=== PATIENT | female | born 1995 | race Two or more races ===

== ENCOUNTER 2019-07-02 19:33 | Emergency (ER) | payer SELFPAY ==
[~2019-07-02] VITALS: Ht 162.6 cm; Wt 68.0 kg
--- NOTE | 2019-07-02 19:39 | NUR ---
ED Nurse Note: pt presents to ED via EMS arrival RA 70 c/o tachycardia after eating a marijuana edible. per EMS, pt and her boyfriend were at [employer] and both ate an entire brownie, unk dose, this is both of their first times. pt and her boyfriend are concerned about palpitations and a "racing heart" at this time. she appears to be very anxious, tearful
--- NOTE | 2019-07-02 19:54 | NUR ---
ED Nurse Note: ASL gravedigger used: ID # [id number]
[2019-07-02] MEDS ORDERED: LORazepam Inj 2mg/ml 1ml IM ONE (20:00)
[2019-07-02 20:08] VITALS: BP 149/124
--- NOTE | 2019-07-02 20:45 | Emergency Room Report ---
History of Present Illness General Chief Complaint: Substance Abuse Source: Patient (Consuelo Sharpe) Present Illness HPI 24-year-old female presents to the emergency department complaining of racing heart and anxiousness in addition to feeling as if she cannot breathe status post ingestion of marijuana brownie. Prior to arrival patient and her boyfriend were at [facility] when they began having symptoms, and EMS was contacted. They report that they each shared one half of a marijuana brownie and they are having similar symptoms. Patient denies past medical history. She denies pain. He denies allergies. She denies taking medications. Patient reports this is her first time using drugs/THC. She denies any intentional co- ingestions. HPI and ROS were initially limited upon arrival. Limited knowledge was obtained by EMS. A Video remote interpreting service was utilized to collect and confirm the above information. (Consuelo Sharpe) Allergies: Coded Allergies: No Known Allergies (Unverified , 07/02/19) Patient History Past Medical History: see triage record Past Surgical History: none Pertinent Family History: none Now: No Reviewed Nursing Documentation: PMH: Agreed; PSxH: Agreed (Consuelo Sharpe) Review of Systems All Other Systems: limited (Consuelo Sharpe) Physical Exam Vital Signs Date Time Temp Pulse Resp B/P (MAP) Pulse Ox O2 Delivery O2 Flow Rate FiO2 07/02/19 19:20 98.6 140 22 149/124 (132) 98 Room Air (Consuelo Sharpe) Medical Decision Making PA Attestation Dr. Oconnor Is my supervising Physician whom patient management has been discussed with. (Consuelo Sharpe) Diagnostic Impression: Primary Impression: Acute drug intoxication Qualified Codes: F19.920 - Other psychoactive substance use, unspecified with intoxication, uncomplicated ER Course 28-year-old male presents to the emergency department complaining of palpitations and anxiousness in addition to feeling as if he cannot breathe status post ingestion of marijuana brownie. Prior to arrival patient and his girlfriend were at [facility] when they began having symptoms, and EMS was contacted. They report that they each shared one half of a marijuana brownie and they are having similar symptoms. Patient denies past medical history. He denies pain. He denies allergies. And he denies taking medications. Patient reports this is his first time using drugs/THC. He denies any intentional co- ingestions. HPI and ROS were initially limited upon arrival. Limited knowledge was obtained by EMS. A Video remote interpreting service was utilized to collect and confirm the above information. Pt is hyperactive, and has a very anxious and restless affect. Ddx considered but are not limited to Acute Drug intoxication, OD, SI/HI, Acute coronary syndrome, respiratory depression just to name a few. Vital signs: Pt. is tachycardic, remaining VS are WNL, pt. is afebrile, repeated VS, HR is improving, all other VS remain WNL. H&PE are most consistent with: Side effects of acute drug intoxication- no evidence to suggest acute impending airway compromise, no EKG evidence to suggest cardiac ischemia. ORDERS: -UDS: Positive for THC ED INTERVENTIONS: - 1mg Ativan IM - 0.5mg Ativan IV - 1 Liter NS Bolus IV DISCHARGE: At this time pt. is stable for d/c to home. Will provide printed patient care instructions, and any necessary prescriptions. Care plan and follow up instructions have been discussed with the patient prior to discharge. VRI was used a second time at time of d/c, It was confirmed the pt. understands her current condition, her plan for at home and follow up, ED return precautions, and She has no further questions. She agrees that VRI has been an effective and acceptable form of communication for her needs. (Consuelo Sharpe) EKG Diagnostic Results EP Interpretation: Dr. Oconnor Rate: tachycardiac - 135 bpm Rhythm: NSR ST Segments: no acute changes ASA given to the pt in ED: No PA Scribe Text This Interpretation was scribed by MICHAEL Sharpe. (Consuelo Sharpe) Last Vital Signs Date Time Temp Pulse Resp B/P (MAP) Pulse Ox O2 Delivery O2 Flow Rate FiO2 07/02/19 20:08 98.6 135 22 149/124 98 Room Air Status: improved (Consuelo Sharpe) Disposition: HOME, SELF-CARE Condition: Stable Scripts Lorazepam* (ATIVAN*) 0.5 Mg Tablet 0.5 MG ORAL Q6HR for PRN anxiety, #2 TAB Prov: Consuelo Sharpe 07/02/19 Patient Instructions: Drug Overdose Additional Instructions: Stop use of Marijuana products. Drink plenty of fluids. Follow up with a Primary Care Provider in 3-5 days, even if your symptoms have resolved. --Please review list of primary care clinics, if you do not already have a primary care provider Return sooner to ED if new symptoms occur, or current symptoms become worse. - Please note that this Emergency Department Report was dictated using Myandbbuff[employer] attendant technology software, occasionally this can lead to erroneous entry secondary to interpretation by the dictation equipment. Consuelo Sharpe Jul 02, 2019 20:45 Catarino Oconnor MD Jul 03, 2019 01:58
[2019-07-02 21:02] VITALS: BP 127/75
[2019-07-02] MEDS ORDERED: LORazepam Inj 2mg/ml 1ml IV ONE (21:15)
[2019-07-02] MEDS ORDERED: ATIVAN0.5 MG ORAL (22:38)
[2019-07-02 22:45] VITALS: BP 127/75
--- NOTE | 2019-07-02 22:45 | NUR ---
ED Nurse Note: Pt cleared by health care Provider for discharge. per family, pt stated that she is feeling better, she wants to go home, is no longer experiencing palpitations or anxiety that she was feeling upon arrival. family declined waiting for [employer] ASL interpretter, pt communicated using writing that she felt better. DC instructions and prescription was given and explained to pt. pt verbalized understanding of teachings. All medical devices such as ID band removed. Pt is AAO x4, ambulatory and left with all personal belongings.
== END 2019-07-02 22:45 | disposition home or self-care (01) ==
LOC: EDBD 19:33 → EMR 20:06
DX: F19.920 Other psychoactive substance use, unspecified with intoxication, uncomplicated (principal); T40.7X5A Adverse effect of cannabis (derivatives), initial encounter; Y92.9 Unspecified place or not applicable; R00.0 Tachycardia, unspecified
CPT/HCPCS: 80307; 81025; 93005; 96361; 96372; 96374; 99284